=== PATIENT | male | born 1990 | race Caucasian/White ===

== ENCOUNTER 2019-10-25 13:51 | Emergency (ER) | payer SELFPAY ==
[~2019-10-25] VITALS: Ht 180.3 cm; Wt 81.6 kg
[2019-10-25 13:53] VITALS: BP 120/67
--- NOTE | 2019-10-25 14:10 | NUR ---
PATIENT [facility] POLICE DEPT. PATIENT EXAMINED BY DR. HOLLAND. PATIENT MEDICALLY CLEARED AND RELEASED IN CUSTODY IN STABLE CONDITION. ORIGINAL PRE-BOOK FORM GIVEN TO OFFICER JC.
[2019-10-25 14:11] VITALS: BP 120/67
--- NOTE | 2019-10-25 14:12 | NUR ---
Patient discharged with v/s stable. Written and verbal after care instructions given and explained. Patient verbalized understanding. Police with in custody. All questions addressed prior to discharge. Advised to follow up with PMD.
== END 2019-10-25 14:12 ==
LOC: MED 13:51
DX: F20.89 Other schizophrenia (principal); M25.561 Pain in right knee; Z00.00 Encounter for general adult medical examination without abnormal findings; Z88.6 Allergy status to analgesic agent
CPT/HCPCS: 99283

== ENCOUNTER 2020-02-27 23:54 | Emergency (ER) | payer SELFPAY ==
[~2020-02-27] VITALS: Ht 180.3 cm; Wt 65.8 kg
--- NOTE | 2020-02-28 00:01 | NUR ---
PT JUAREZ TO ER BED 6 VIA VEGA
--- NOTE | 2020-02-28 00:03 | NUR ---
ERMD BEDSIDE EVALUATING PT
[2020-02-28] MEDS ORDERED: NACL 0.9% 1,000 ML IV ONE (00:05)
[2020-02-28 00:10] VITALS: BP 116/67
--- NOTE | 2020-02-28 00:15 | NUR ---
ASSESSMENT CONT: PT DENIES ANY PLANS TO HURT SELF OR DENIES ANY SI. SPEECH IS MUMBLED.
--- NOTE | 2020-02-28 00:15 | NUR ---
29 Y/O MALE BIBA C/O ALOC. ON ROUTE PT RECEIVED 10MG OF VERSED IN. PT WAS FOUND AT THE [address] TALKING TO SELF AND SAID HE USED BAD SALTS. [place] PD WAS CALLED AND PLACED PT ON A 5150 HOLD. A&OX3 (PERSON, PLACE, AND ).[facility] 14 (CONFUSED). UNSTEADY GAIT. MILD WEAKNESS WHEN WALKING. HEART SOUND S1S2 PRESENT. LUNG SOUNDS CLEAR ALL THROUGHOUT. SKIN IS WARM AND DRY. ALLERGIES: MORPHINE. PMH: [facility].
[2020-02-28 00:17] LABS: BASOPHILS # (AUTO) 0.1 K/uL (0.00-0.22); BASOPHILS % (AUTO) 0.8 % (0.0-2.0); EOSINOPHILS # (AUTO) 0.1 K/uL (0-0.4); EOSINOPHILS % (AUTO) 0.9 % (0.0-4.0); HEMATOCRIT 40.5 % (36-52); HEMOGLOBIN 13.6 g/dL (12.0-18.0); LYMPHOCYTES % (AUTO) 26.5 % (20.5-51.1); MEAN CORPUSCULAR HEMOGLOBIN 33 pg (27-31); MEAN CORPUSCULAR HGB CONC 34 g/dL (33-37); MEAN CORPUSCULAR VOLUME 96.9 fL (80-94); MONOCYTES # (AUTO) 0.6 K/uL (0.8-1.0); MONOCYTES % (AUTO) 7.7 % (1.7-9.3); NEUTROPHILS # (AUTO) 4.7 K/uL (1.8-7.7); NEUTROPHILS % (AUTO) 64.1 % (42.2-75.2); PLATELET COUNT (AUTO) 170 K/uL (140-450); RED BLOOD CELL COUNT(AUTO) 4.18 MIL/uL (4.20-6.10); RED CELL DISTRIBUTION WIDTH 13.4 % (11.6-13.7); WHITE BLOOD COUNT (AUTO) 7.4 K/uL (4.8-10.8)
[2020-02-28 00:42] LABS: ACETAMINOPHEN < 0.5 ug/ml (10-30); ALBUMIN 3.8 g/dL (3.4-5.0); ANION GAP 12.4 (8-16); ASPARTATE AMINOTRANSFERASE 36 U/L (15-37); CARBON DIOXIDE 28.3 mmol/L (21-32); CHLORIDE 109 mmol/L (98-107); CREATININE 1.3 mg/dL (0.6-1.3); GFR ARICAN-AMERICAN 85 mL/min (>90); GLUCOSE 90 mg/dL (74-106); POTASSIUM 3.7 mmol/L (3.5-5.1); SALICYLATE < 2.8 mg/dL (2.8-20.0); SODIUM SERUM 146 mmol/L (136-145); UREA NITROGEN, BLOOD 16 mg/dL (7-18)
--- NOTE | 2020-02-28 01:08 | NUR ---
COLLECTED URINE AND SENT TO LAB.
--- NOTE | 2020-02-28 01:14 | NUR ---
PT IS LAYING COMFORTABLY IN BED. CALM AND COOPERATIVE. PT IS TALKING TO SELF.
[2020-02-28 01:27] LABS: APPEARANCE,URINE CLEAR (CLEAR); BILIRUBIN,URINE NEGATIVE (NEGATIVE); BLOOD, URINE NEGATIVE (NEGATIVE); COLOR,URINE YELLOW (YELLOW); LEUKOCYTE ESTERASE ,URINE NEGATIVE (NEGATIVE); NITRITE, URINE NEGATIVE (NEGATIVE); UGLUCOSE NEGATIVE (NEGATIVE)
[2020-02-28 01:54] LABS: CANNABINOID, URINE POSITIVE ng/mL (NEG <=50)
[2020-02-28 01:55] LABS: BARBITURATE, URINE NEGATIVE ng/ml (NEG <=200); BENZODIAZEPINE, URINE NEGATIVE ng/mL (NEG <=200); COCAINE, URINE NEGATIVE ng/mL (NEG <=300); OPIATE, URINE NEGATIVE ng/mL (NEG <=2000); PHENCYCLIDINE SCREEN,URINE NEGATIVE ng/mL (NEG <=25)
--- NOTE | 2020-02-28 02:01 | NUR ---
TELEMED REQUEST SENT
[2020-02-28] MEDS ORDERED: OLANZapine 5 MG TAB PO ONE (02:30)
--- NOTE | 2020-02-28 03:10 | NUR ---
PT LAYING COMFORTABLY IN BED. EQUAL CHEST RISE AND FALL.
[2020-02-28] MEDS ORDERED: LORazepam 2 MG/ML VIAL IM/IVP ONE (04:00)
--- NOTE | 2020-02-28 04:56 | NUR ---
PT IS SLEEPING COMFORTABLY. EQUAL CHEST RISE AND FALL. NO DISTRESS NOTED. SIDE RAILS UP X 1.
[2020-02-28 07:15] VITALS: BP 122/76
--- NOTE | 2020-02-28 07:15 | NUR ---
Patient discharged with v/s stable. Written and verbal after care instructions given and explained. Patient verbalized understanding. Ambulatory with steady gait. All questions addressed prior to discharge. Advised to follow up with PMD.
--- NOTE | 2020-02-28 07:15 | NUR ---
Patient given written and verbal discharge instructions and verbalizes understanding. Given copies of tests performed during visit. Patient is awake, alert and oriented. Ambulatory with steady gait. Given list of available shelters in surrounding areas. GIVEN BUS PASS, FOOD, AND CLOTHING.
== END 2020-02-28 07:15 | disposition home or self-care (01) ==
LOC: MED 23:54
DX: F19.10 Other psychoactive substance abuse, uncomplicated (principal); F20.9 Schizophrenia, unspecified; Z88.5 Allergy status to narcotic agent; Z59.0 Homelessness
CPT/HCPCS: 36415; 80053; 80305; 81003; 85025; 93005; 96374; 99285; G0480; G0482; J2060; J7030; 99284

== ENCOUNTER 2021-07-10 09:56 | Emergency (ER) | payer MEDICAID ==
[~2021-07-10] VITALS: Ht 180.3 cm; Wt 61.3 kg
[2021-07-10 10:03] VITALS: BP 122/91
--- NOTE | 2021-07-10 10:09 | NUR ---
PT TO ER CHAIR A WITH [facility] AT CHAIR SIDE
--- NOTE | 2021-07-10 10:10 | NUR ---
PT DENIES N/V/D; SKIN IS INTACT, PINK/WARM/DRY; AAOX4, PERRL, WITH EVEN AND STEADY GAIT; LUNGS CLEAR BL, BREATHING UNLABORED; HR EVEN AND REGULAR, BL PERIPHERAL PULSES PRESENT; BS ACTIVE X4, NO TENDERNESS TO PALPATION. PT DENIES ANY FEVER, CP, SOB, OR COUGH AT THIS TIME; PT STATES 0/10 PAIN AT THIS TIME; VSS; PATIENT POSITIONED FOR COMFORT.
[2021-07-10 10:30] VITALS: BP 119/80
== END 2021-07-10 10:30 ==
LOC: MED 09:56
DX: Z02.89 Encounter for other administrative examinations (principal); Z88.5 Allergy status to narcotic agent; V43.52XA Car driver injured in collision with other type car in traffic accident, initial encounter; Y93.89 Activity, other specified; Y92.410 Unspecified street and highway as the place of occurrence of the external cause; Y99.8 Other external cause status
CPT/HCPCS: 99283